=== PATIENT | male | born 1970 | race Caucasian/White ===

== ENCOUNTER 2017-11-06 22:17 | Emergency (ER) | payer MEDICAID ==
--- NOTE | 2017-11-06 22:22 | ER Report ---
History and Physical Time Seen By MD: 22:21 HPI/ROS CHIEF COMPLAINT: Back pain HISTORY OF PRESENT ILLNESS: 46-year-old male presents via ambulance complaining of severe lower back pain after a fall 3 days ago. He describes a hyperextension injury. He is status post 2 back surgeries. He states the last was in 2014. He states he's undergone injections in his back 4 months ago. He' s been doing pretty well since then. He denies incontinence. Tonight he called the ambulance because he was unable to stand and walk on his legs due to severe pain in his back. Patient claims he is not taking any narcotic pain relievers. The [place] prescription drug monitoring website was reviewed as noted below. He's been receiving large bottles of opiate pain medication monthly for the last 4 months. There is no notation on this patient patient for October 13. I suspect that he violated his chronic pain contract and has not received his medications. Evaluation of the [place] prescription drug monitoring website shows patient receives amphetamine salt combo 20 mg #60 tablets, morphine 30 mg extended release #60 tablets and oxycodone 10 mg, #120 tablets monthly, last dispense on 09/15/17, there is a prescription for oxycodone/Tylenol 5/325 #15 tablets from a provider at [facility] emergency department in [place], [place] Evaluation of the [facility] Prescription drug monitoring website shows hydrocodone 5 mg/325 #7 dispensed on 10/26/2017 REVIEW OF SYSTEMS: Respiratory: No cough, no dyspnea. Cardiovascular: No chest pain, no palpitations. Gastrointestinal: No vomiting, no abdominal pain. Musculoskeletal: As above Allergies: Coded Allergies: NSAIDS (Non-Steroidal Anti-Inflamma (Verified Allergy, Severe, ANAPHYLAXIS , 11/06/17) Home Meds Active Scripts Tramadol Hcl (TRAMADOL HCL) 50 Mg Tablet, 50-100 MG PO Q6H Y for PAIN, #12 MG TAKE ONE TO TWO TABLETS BY MOUTH EVERY FOUR TO SIX HOURS NEEDED Prov:KIMBERLY HERZOG DO 11/06/17 Methylprednisolone (METHYLPREDNISOLONE) 4 Mg Tab.ds.pk, 4 MG PO DIRECTED, #1 TAB Prov:KIMBERLY HERZOG DO 11/06/17 Reviewed Nurses Notes: Yes Old Medical Records Reviewed: Yes Constitutional Vital Sign - Last 24 Hours 11/06/17 11/06/17 11/06/17 11/06/17 22:22 23:15 23:20 23:25 Temp 98.3 Pulse 101 87 80 78 Resp 16 B/P (MAP) 138/96 Pulse Ox 93 94 94 94 O2 Delivery Room Air 11/06/17 11/06/17 11/06/17 11/06/17 23:30 23:35 23:40 23:45 Pulse 78 72 66 75 B/P (MAP) 124/91 (102) Pulse Ox 94 91 94 93 Physical Exam General Appearance: The patient is alert, has no immediate need for airway protection and no current signs of toxicity. Vital signs stable, mild tachycardia, slightly elevated blood pressure, afebrile Eyes: Pupils equal and round no injection. Respiratory: Chest is non tender, lungs are clear to auscultation. Cardiac: regular rate and rhythm Gastrointestinal: Abdomen is soft and non tender, no masses, bowel sounds normal. Musculoskeletal: Neck: Neck is supple and non tender. Back: Well-healed midline surgical scar, pain out of proportion to clinical findings on even light palpation. Patient jumps with severe pain Extremities have full range of motion and are non tender. Skin: No rashes or lesions. DIFFERENTIAL DIAGNOSIS: After history and physical exam differential diagnosis was considered for back pain including but not limited to muscular pain, herniated disc, spine fracture, drug-seeking behavior, intra-abdominal causes and urinary tract infection. Medical Decision Making ED Course/Re-evaluation ED Course Patient was admitted to an examination room. H&P was done. The differential diagnosis was considered. Prescription drug monitoring website were evaluated for both [place] in [place]. Patient's been receiving opiate pain relievers. Up until mid October when I think he violated his chronic pain management agreement. He had been receiving monthly prescriptions of oxycodone 10 #120 tablets and morphine 30 #60 tablets, as well as amphetamine salts 20 mg #60. Patient has not received his usual refill on 10/13/17. There are 2 visits to ERs in the [place] area where it appears he received prescriptions for opiate pain relievers. Patient was medicated with Decadron 10 mg IV, Dilaudid 2 g IV, Zofran 4 mg IV, Robaxin 1500 mg by mouth. After learning of patient's previous opiate use on prescription drug monitoring website. Patient will be discharged with a Medrol Dosepak and a prescription for tramadol and advised to follow-up with his chronic pain specialist or spinal surgeon.. Decision to Disposition Date: Nov 06, 2017 Decision to Disposition Time: 23:31 Depart Departure Latest Vital Signs Vital Signs Date Time Temp Pulse Resp B/P (MAP) Pulse Ox O2 Delivery O2 Flow Rate FiO2 11/06/17 23:45 75 93 11/06/17 23:30 124/91 (102) 11/06/17 22:22 98.3 16 Room Air Impression: Primary Impression: Chronic back pain Additional Impression: History of back surgery Condition: Improved Disposition: HOME OR SELF-CARE New Scripts Tramadol Hcl (TRAMADOL HCL) 50 Mg Tablet 50-100 MG PO Q6H Y for PAIN, #12 MG TAKE ONE TO TWO TABLETS BY MOUTH EVERY FOUR TO SIX HOURS NEEDED Prov: KIMBERLY HERZOG DO 11/06/17 Methylprednisolone (METHYLPREDNISOLONE) 4 Mg Tab.ds.pk 4 MG PO DIRECTED, #1 TAB Prov: KIMBERLY HERZOG DO 11/06/17 Patient Instructions: Chronic Back Pain (ED) Additional Instructions: Follow-up with your specialist in [place] Problem Qualifiers Primary Impression: Chronic back pain Back pain location: low back pain Back pain laterality: unspecified Sciatica presence: unspecified whether sciatica present Qualified Codes: M54.5 - Low back pain; G89.29 - Other chronic pain KIMBERLY HERZOG DO Nov 06, 2017 22:22
[2017-11-06] MEDS ORDERED: HYDROmorphone HCL 2 MG/ML SDV IVP ONE (23:00)
[2017-11-06] MEDS ORDERED: DEXAMETHASONE SOD PHOS 10MG/ML IVP ONE (23:00)
[2017-11-06] MEDS ORDERED: METHOCARBAMOL 500 MG TAB PO ONE (23:00)
[2017-11-06] MEDS ORDERED: PROMETHAZINE 25 MG/ML 1 ML AMP IVP ONE (23:05)
[2017-11-06] MEDS ORDERED: ONDANSETRON 4 MG/2 ML VIAL IVP ONE (23:20)
[2017-11-06 23:30] VITALS: BP 124/91
[2017-11-06] MEDS ORDERED: TRAM-420 PO (23:55)
[2017-11-06] MEDS ORDERED: METH4TAB66 PO (23:55)
== END 2017-11-07 00:04 | disposition home or self-care (01) ==
LOC: ER 22:20
DX: M54.5 Low back pain (principal); G89.29 Other chronic pain
CPT/HCPCS: 96374; 96375; 99283; J1100; J1170; J2405

== ENCOUNTER → 2017-11-06 | Outpatient (CLI) | payer MEDICAID ==
[~2017-11-06] MED LIST: METH4TAB66 PO; TRAM-420 PO
== END ==
LOC: AMB 21:41
PROVIDERS: ATTEND Nurse Practitioner
DX: M54.5 Low back pain (principal); R11.10 Vomiting, unspecified; R06.00 Dyspnea, unspecified
CPT/HCPCS: A0425; A0433

== ENCOUNTER → 2017-11-06 | Outpatient (CLI) | payer MEDICAID | LOC: AMB 21:41 | PROVIDERS: ATTEND Nurse Practitioner | DX: M54.5 Low back pain (principal); R11.10 Vomiting, unspecified; R06.00 Dyspnea, unspecified | CPT/HCPCS: A0425; A0433 ==